=== PATIENT | female | born 1995 | race American Indian/Alaskan Native ===

== ENCOUNTER 2018-05-27 16:33 | Emergency (ER) | payer SELFPAY ==
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
[2018-05-27] MEDS ORDERED: MOTRIN PO ONE (18:27)
[2018-05-27 19:10] LABS: HCG Qualitative,Urine Negative (Negative)
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
[2018-05-27 22:03] VITALS: BP 132/74
== END 2018-05-27 22:01 | disposition home or self-care (01) ==
LOC: ED 16:33
DX: R51 Headache (principal); V89.2XXA Person injured in unspecified motor-vehicle accident, traffic, initial encounter; Y93.89 Activity, other specified; Y92.89 Other specified places as the place of occurrence of the external cause; Y99.8 Other external cause status
CPT/HCPCS: 70450; 81025; 99284